=== PATIENT | female | born 1975 | race Caucasian/White ===

== ENCOUNTER 2017-02-12 18:00 | Emergency (ER) | payer SELFPAY ==
--- NOTE | ~2017-02-12 | ER ---
PATIENT'S NAME: ALEX BRASWELL [facility] AGE: 41 Y [address] ROOM: [place] [id number] LOCATION: [facility] ADMIT DATE: 02/12/2017 ER/Outpatient Report DISCHARGE DATE: 02/12/2017 FAMILY PHYSICIAN: PHYSICIAN, NO ATTENDING PHYSICIAN: Lewis Crenshaw Time of Arrival: 1800 hours. Time of Evaluation: 1810 hours. CHIEF COMPLAINT: Right shoulder pain. HISTORY OF PRESENT ILLNESS: This is a 41-year-old female, who presents to the ER with right shoulder pain that started yesterday after she was lifting a memory foam mattress. The patient states that she has pain across her right scapula area, shoulder, and trapezius muscle. She states she took a handful of Aleve at home with no relief of her pain. She states that she has never injured her shoulder before. She denies any other problems at this time. ALLERGIES: PENICILLIN. MEDICATIONS: None. PAST MEDICAL HISTORY: Cervical cancer. SOCIAL HISTORY: Smokes 4 to 5 cigarettes a day. Drinks alcohol rarely. REVIEW OF SYSTEMS: CONSTITUTIONAL: Denies any change in weight or fatigue. MUSCULOSKELETAL: Complaining of right shoulder pain. HEMATOLOGIC: No easy bruising or bleeding. SKIN: No lesions or rashes. PHYSICAL EXAMINATION: VITAL SIGNS: Height 5 feet and 7 inches stated, weight 65.8 kg taken, blood pressure is 169/98, pulse 100, respirations 20, temperature 98 degrees tympanically, and saturations 95% on room air. Narciso Coma Score is 15. GENERAL: Alert, calm, well-developed female, in no obvious distress. LUNGS: Clear to auscultation bilaterally. No wheeze or crackles. Normal respiratory effort. PATIENT'S NAME: ALEX BRASWELL [facility] AGE: 41 Y [address] ROOM: [place], [place] [address] LOCATION: [facility] ADMIT DATE: 02/12/2017 ER/Outpatient Report DISCHARGE DATE: 02/12/2017 FAMILY PHYSICIAN: PHYSICIAN, NO ATTENDING PHYSICIAN: Lewis Crenshaw HEART: Regular rate and rhythm. No lifts, thrills, or murmurs. EXTREMITIES: No clubbing or cyanosis. She does have full range of motion of her right shoulder. She does have pain with palpation over her right trapezius muscle and her right posterior upper back as well. She has no tenderness over her clavicle or her shoulder joint. LABORATORY DATA AND X-RAYS: None were done. IMPRESSION: Right upper back and trapezius muscular pain. ASSESSMENT AND PLAN: I did give the patient reassurance. I will dismiss her to home with a prescription for Flexeril to use as directed. She may continue using Aleve or ibuprofen. She needs to ice, gentle stretches, and follow up with her primary care physician if she does not improve. The patient understands and agrees with care. BARBARA RIVERA PA-C FOR MD PATTIE FULLER/analia /[id number] d: t: 02/15/17 1322, OUTPATIENT REPORT
== END 2017-02-12 18:22 | disposition disaster alternative care site (69) ==
LOC: GACC 18:00
DX: M54.6 Pain in thoracic spine (principal); M25.511 Pain in right shoulder; F17.210 Nicotine dependence, cigarettes, uncomplicated; Z88.0 Allergy status to penicillin; Z85.41 Personal history of malignant neoplasm of cervix uteri

== ENCOUNTER 2017-04-12 17:44 | Emergency (ER) | payer SELFPAY ==
--- NOTE | ~2017-04-12 | ER ---
[facility] 41 [facility] [address] ROOM: [place], [place] [address] LOCATION: [facility] ADMIT DATE: 04/12/2017 ER/Outpatient Report DISCHARGE DATE: 04/12/2017 FAMILY PHYSICIAN: Minesh Shah MD ATTENDING PHYSICIAN: Dante Brambila Time of Arrival: 1744 hours. Time of Evaluation: 1810 hours. CHIEF COMPLAINT: Right knee laceration. HISTORY OF PRESENT ILLNESS: This is a 41-year-old female, who presents to the ER with a right knee laceration that happened approximately 8 hours ago. The patient states that she was walking on the sidewalk, and she walked over some uneven cement, fell, and lacerating her right knee. She states that she did not think it was as deep as it was and ended up putting a Band-Aid on that and then it reopened again today. She states that she is up-to-date on her tetanus shot. She denies any other problems at this time. ALLERGIES: PLEASE SEE MEDICATION LIST ON NURSE'S NOTES. MEDICATIONS: Please see medication list on nurse's notes. PAST MEDICAL HISTORY: Sciatic pain, chronic back pain. PAST SURGICAL HISTORY: Ear tubes, hysterectomy. SOCIAL HISTORY: She smokes half pack a day for the last 17 years. Does smoke some marijuana. REVIEW OF SYSTEMS: CONSTITUTIONAL: No change in weight or fatigue. MUSCULOSKELETAL: No weakness or myalgias. HEME: No easy bruising or bleeding. SKIN: Has lacerations to her right knee. PHYSICAL EXAMINATION: VITAL SIGNS: Height 5 feet 7 inches stated, weight 61.8 kg taken, blood pressure is 168/97, pulse 61, respirations 14, temperature 96.7 degrees [facility] 41 Y [address] ROOM: [place], [place] [address] LOCATION: [facility] ADMIT DATE: 04/12/2017 ER/Outpatient Report DISCHARGE DATE: 04/12/2017 FAMILY PHYSICIAN: Minesh Shah MD ATTENDING PHYSICIAN: Dante Brambila tympanically, and saturations 98% on room air. Narciso Coma Score is 15. GENERAL: Alert, calm, well-developed female, in no obvious distress. EXTREMITIES: No clubbing or cyanosis. She does have full range of motion of her right lower extremity. She was able to ambulate in with no difficulty. SKIN: She has 2 parallel lacerations around horizontally just under her right patella. The top laceration measuring 4 cm, the bottom laceration is measuring 2 cm. They are both not actively bleeding. LABORATORY DATA AND X-RAYS: None were done. IMPRESSION: Two lacerations to right knee, one measuring 4 cm and one measuring 2 cm. ASSESSMENT AND PLAN: I did numb the site with 1% lidocaine with epinephrine. I cleansed thoroughly with normal saline. Flushed out the laceration sites thoroughly with normal saline and repaired the lacerations using 4-0 Ethilon. The patient did tolerate this well. We did place antibiotic ointment and bandage to the area. We will dismiss her to home with Levaquin to use as directed for coverage due to her allergy list. She is to follow up with her primary care physician in 7- 10 days for suture removal. The patient understands and agrees with care. BARBARA RIVERA PA-C FOR DO PATTIE SR/analia /[id number] d: 04/13/17 0107 t: 04/23/17 0651, OUTPATIENT REPORT
== END 2017-04-12 18:57 | disposition disaster alternative care site (69) ==
LOC: GACC 17:44
PROC: 0HQKXZZ Repair Right Lower Leg Skin, External Approach (ICD-10-PCS; principal; 2017-04-12)
DX: S81.011A Laceration without foreign body, right knee, initial encounter (principal); F17.210 Nicotine dependence, cigarettes, uncomplicated; Z88.0 Allergy status to penicillin; Z90.710 Acquired absence of both cervix and uterus; Z98.890 Other specified postprocedural states; W10.1XXA Fall (on)(from) sidewalk curb, initial encounter; Y93.01 Activity, walking, marching and hiking

== ENCOUNTER 2017-06-30 13:47 | Emergency (ER) | payer SELFPAY ==
--- NOTE | ~2017-06-30 | ER ---
PATIENT'S NAME: ALEX BRASWELL [facility] AGE: 41 Y [address] ROOM: [place] [address] LOCATION: [facility] ADMIT DATE: 06/30/2017 ER/Outpatient Report DISCHARGE DATE: 06/30/2017 FAMILY PHYSICIAN: PHYSICIAN, NO ATTENDING PHYSICIAN: Darryl Rucker Time of Arrival: 1355 hours. Time of Evaluation: 1402 hours. CHIEF COMPLAINT: Back pain and difficulty urinating. HISTORY OF PRESENT ILLNESS: The patient states she has not felt well for the last 5 days. Has had pain with urination. She had some leftover antibiotics that she did take at home but has not had any relief. She continues to have pain with urination and frequency. She has been nauseated, has had some diarrhea stools. ALLERGIES: PENICILLIN. CURRENT MEDICATIONS: None. PAST MEDICAL HISTORY: Recurrent UTIs, chronic back pain. PAST SURGICAL HISTORY: Ear tubes, hysterectomy. SOCIAL HISTORY: She states she smokes 5 cigarettes per day. Denies use of drugs and alcohol. REVIEW OF SYSTEMS: Negative other than those mentioned in the HPI. PHYSICAL EXAMINATION: VITAL SIGNS: She weighs 60.2 kg, blood pressure is 145/90, pulse of 104, respirations 20, temperature of 99.6 tympanic, O2 saturation is 98% on room air. GENERAL: She is awake, alert, and oriented x4. SKIN: [place], warm, and dry. RESPIRATIONS: Even and nonlabored. Lung sounds are clear throughout. HEART: Regular rate and rhythm. ABDOMEN: Soft, nondistended. Bowel sounds are present. She does have some PATIENT'S NAME: ALEX BRASWELL [facility] AGE: 41 Y [address] ROOM: [place] [address] LOCATION: [facility] ADMIT DATE: 06/30/2017 ER/Outpatient Report DISCHARGE DATE: 06/30/2017 FAMILY PHYSICIAN: PHYSICIAN, NO ATTENDING PHYSICIAN: Darryl Rucker CVA tenderness on the left. LABORATORY DATA AND X-RAYS: Clean-catch UA was obtained. It shows 25 leukocytes and positive nitrites. Micro shows moderate bacteria and 20-50 white blood cells. IMPRESSION: Urinary tract infection. PLAN: Home, rest, fluids. Tylenol or ibuprofen for fever and discomfort. Prescription was written for Bactrim DS. Note was written to excuse her from work. If symptoms persist or worsen, she is to follow up with her primary provider in 2-3 days. She verbalized understanding. SANCHO JOHNSTON APRN FOR MD SHASHI TIAN/analia /[id number] d: 06/30/172024 t: 07/09/17 1058, OUTPATIENT REPORT
[2017-06-30 14:15] LABS: BILIRUBIN URINE NEGATIVE (NEGATIVE); BLOOD URINE 150 /UL (NEGATIVE); COLOR URINE BROWN (YELLOW); GLUCOSE URINE 250 mg/dL (NEGATIVE); KETONE URINE 5 mg/dL (NEGATIVE); LEUKOCYTES URINE 25 /UL (NEGATIVE); NITRITE URINE POSITIVE (NEGATIVE); PH URINE 6.5 (4.0-8.0); PROTEIN URINE 100 mg/dL (NEGATIVE); TURBIDITY URINE 2+ (CLEAR); UROBILINOGEN URINE 1 mg/dL (NORMAL)
[2017-06-30 14:31] LABS: WBC URINE 20-50 #/HPF (NEGATIVE)
[2017-06-30 14:32] LABS: BACTERIA URINE MODERATE (NEGATIVE); HYALINE CAST URINE 0-2 #/LPF (NEGATIVE); MUCUS URINE 2+ (NEGATIVE)
== END 2017-06-30 14:28 | disposition disaster alternative care site (69) ==
LOC: GMED 13:47
PROVIDERS: Nurse Practitioner Family
DX: N39.0 Urinary tract infection, site not specified (principal); F17.210 Nicotine dependence, cigarettes, uncomplicated; Z88.0 Allergy status to penicillin; Z90.710 Acquired absence of both cervix and uterus; Z79.899 Other long term (current) drug therapy